=== PATIENT | male | born 1990 | race Caucasian/White ===

== ENCOUNTER → 2019-01-08 | Outpatient (CLI) | payer MEDICARE, OTHER, MEDICAID ==
--- NOTE | 2019-01-08 12:27 | REP ---
Right humerus at three views History: Pain There is no acute fracture or dislocation. The joint spaces are normal in appearance. Impression there is no acute fracture or dislocation. Electronically Signed by Jaskaran Valentine MD 01/08/2019 12:18 P
== END ==
LOC: M WUC 11:47
PROVIDERS: ATTEND Physician Assistant
DX: M79.621 Pain in right upper arm (principal)

== ENCOUNTER → 2019-01-15 | Outpatient (CLI) | payer MEDICARE, OTHER, MEDICAID ==
[~2019-01-15] MED LIST: ISOVUE-370 76% 100ML VIAL (Q9967) As Ordered ONE
--- NOTE | 2019-01-15 16:58 | REP ---
CT orbits with contrast History: Left periorbital cellulitis Contrast: Isovue 370 75 ml the globes optic nerves and rectus muscles are normal in appearance. Left preseptal soft tissue swelling is present. There is enlargement of the left lacrimal gland. Lateral gland is heterogeneous in density. The visualized sinuses are clear. Impression: Left preseptal cellulitis. The left lateral lacrimal gland is enlarged and heterogeneous in density consistent with inflammation. Electronically Signed by Jaskaran Valentine MD 01/15/2019 04:50 P
== END ==
LOC: M RAD 16:03
PROVIDERS: ATTEND Ophthalmology
DX: L03.213 Periorbital cellulitis (principal)
CPT/HCPCS: 70481; Q9967

== ENCOUNTER → 2022-09-12 | Outpatient (CLI) | payer OTHER, MEDICAID ==
[2022-09-12 11:18] LABS: HEMOGLOBIN A1c 5.2 % (4.0-6.0)
[2022-09-12 11:25] LABS: CPK CREATINE PHOSPHOKINASE 48 U/L (46-171); RHEUMATOID FACTOR QUANT < 3.5 IU/ML (<14)
[2022-09-12 11:26] LABS: THYROID STIMULATING HORMONE 1.554 uIU/ML (0.55-4.78)
[2022-09-12 11:27] LABS: FOLATE > 24.0 NG/ML (>5.4); TOTAL 25(OH) VITAMIN D 15.6 NG/ML (20.0-100.0)
[2022-09-12 11:28] LABS: VITAMIN B12 LEVEL 484 PG/ML (211-911)
[2022-09-17 23:09] LABS: ANTINUCLEAR ANTIBODIES DIRECT Negative (Negative); VITAMIN B1 LEVEL WHOLE BLOOD 117.8 nmol/L (66.5-200.0); VITAMIN B6,PYRIDOXAL PHOSPHATE 14.8 ug/L (3.4-65.2); VITAMIN E(ALPHA TOCOPHEROL) 8.5 mg/L (5.9-19.4); VITAMIN E(GAMMA TOCOPHEROL) 1.5 mg/L (0.7-4.9)
== END ==
LOC: M LAB 09:57
PROVIDERS: ATTEND Psychiatry & Neurology Neurology
DX: E53.8 Deficiency of other specified B group vitamins (principal); E51.9 Thiamine deficiency, unspecified; E55.9 Vitamin D deficiency, unspecified; E53.1 Pyridoxine deficiency; R20.0 Anesthesia of skin; M79.609 Pain in unspecified limb; E11.9 Type 2 diabetes mellitus without complications

== ENCOUNTER → 2023-02-27 | Outpatient (CLI) | payer MEDICARE, MEDICAID ==
[2023-02-27 13:33] LABS: PHOSPHORUS LEVEL 3.1 MG/DL (2.5-4.9)
[2023-02-27 13:35] LABS: PTH INTACT 33.5 PG/ML (18.5-88.0)
== END ==
LOC: M PLALAB 10:34
PROVIDERS: ATTEND Allergy & Immunology Allergy
DX: L29.9 Pruritus, unspecified (principal)

== ENCOUNTER 2024-08-09 14:04 | Emergency (ER) | payer MEDICARE, MEDICAID ==
[~2024-08-09] VITALS: Ht 160 cm; Wt 53.5 kg
[2024-08-09 16:30] LABS: BASO % 0.5 % (0.0-1.0); EOS % 0.1 % (0.0-3.0); HEMATOCRIT 41.6 % (42.0-52.0); HEMOGLOBIN 14.2 g/dl (13.5-17.5); LYMPH # 0.4 10^3/uL (1.5-5.0); LYMPH % 5.5 % (24.0-44.0); MEAN CORPUSCULAR HEMOGLOBIN 29.8 pg (27.0-33.0); MEAN CORPUSCULAR HGB CONC 34.1 g/dl (32.0-36.5); MEAN CORPUSCULAR VOLUME 87.4 fl (80.0-96.0); NEUTROPHILS # 5.9 10^3/uL (1.5-8.5); NEUTROPHILS % 80.8 % (36.0-66.0); PLATELET COUNT, AUTOMATED 234 10^3/uL (150-450); RED BLOOD COUNT 4.76 10^6/uL (4.30-6.10); WHITE BLOOD COUNT 7.3 10^3/uL (4.0-10.0)
[2024-08-09 17:01] LABS: ALBUMIN 4.2 G/DL (3.2-5.2); ALKALINE PHOSPHATASE 55 U/L (40-129); ALT/SGPT 14 U/L (7.0-40); AST/SGOT 14 U/L (<34); BILIRUBIN,DIRECT 0.4 MG/DL (<0.4); BILIRUBIN,TOTAL 0.9 MG/DL (0.3-1.2); BLOOD UREA NITROGEN 11 MG/DL (9-23); CALCIUM LEVEL 9.3 MG/DL (8.5-10.1); CARBON DIOXIDE LEVEL 30 MMOL/L (20-31); CHLORIDE LEVEL 100 MMOL/L (98-107); CREATININE FOR GFR 0.71 MG/DL (0.70-1.30); GLOMERULAR FILTRATION RATE > 60.0 (>60); GLUCOSE, FASTING 80 MG/DL (60-100); POTASSIUM SERUM 3.6 MMOL/L (3.5-5.1); SODIUM LEVEL 140 MMOL/L (136-145); TOTAL PROTEIN 7.3 G/DL (5.7-8.2)
[2024-08-09] MEDS: ACETAMINOPHEN 500 MG TAB PO ONE (20:03)
[2024-08-09] MEDS ORDERED: OSEL75CA PO (20:57)
[2024-08-09] MEDS ORDERED: ONDA-282 PO (20:57)
[2024-08-09 21:11] VITALS: BP 106/55; TEMP 99.6; O2SAT 97
[2024-08-09] MEDS: OSELTAMIVIR PHOSPHATE 75 MG CAP (TAMIFLU) PO ONE (21:23)
== END 2024-08-09 21:33 | disposition home or self-care (01) ==
LOC: M ED 14:04 → EDBD 14:04 → M ED 21:33
DX: J09.X2 Influenza due to identified novel influenza A virus with other respiratory manifestations (principal); Z88.1 Allergy status to other antibiotic agents; Z79.899 Other long term (current) drug therapy